=== PATIENT | female | born 1995 | race Caucasian/White ===

== ENCOUNTER 2019-02-24 15:58 | Emergency (ER) | payer MEDICAID, OTHER ==
--- NOTE | 2019-02-24 16:43 | ERPHSYRPT ---
- History of Present Illness Time Seen by Provider: 02/24/19 16:30 Source: patient Exam Limitations: clinical condition Patient Subjective Stated Complaint: staets had an episdode of dizzines while at work. was going up and down on a ladder. Triage Nursing Assessment: alert and oriented with c/o dizziness at work. was going up and down on a ladder. able to ambulate with no problems. neuro intact. Physician History: PATIENT COMPLAINS OF ACUTE OF ONSET OF SORETHROAT, NASAL CONGESTION FAND SLIGHT PRODUCTIVE COUGH X 24 HOURS. HAD TRANSIENT EPISODE OF DIZZINESS WHILE CLIMBING STEPS. DENIES HEADACHE, EARACHE, DIZZINESS, DYSPNEA OR DIFFICULTY BREATHING. Timing/Duration: yesterday Cough Quality/Degree: productive cough, sputum Possible Cause: no prior episodes Modifying Factors: Improves With: activity Associated Symptoms: fever International travel in last 2 weeks: No Allergies/Adverse Reactions: latex Allergy (Mild, Verified 04/20/16 11:11) "latex bandages"- rash/skin tearing or adhesive on bandages Home Medications: Hydrocodone/Acetaminophen [Lortab 5-325 mg Tablet] 1 - 2 tab PO Q4HPRN PRN 04/21 [History] Sulfamethoxazole/Trimethoprim [Bactrim Ds Tablet] 1 tab PO BID 04/21/16 [History ] Hx Influenza Vaccination/Date Given: No Immunizations Up to Date: Yes - Review of Systems Constitutional: Fever, No Chills Eyes: No Symptoms Ears, Nose, & Throat: No Symptoms, Throat Pain Respiratory: Cough, No Dyspnea Cardiac: No Symptoms, No Chest Pain, No Edema, No Syncope Abdominal/Gastrointestinal: No Symptoms, No Abdominal Pain, No Nausea, No Vomiting, No Diarrhea Genitourinary Symptoms: No Symptoms, No Dysuria Musculoskeletal: No Back Pain, No Neck Pain Skin: No Rash Neurological: No Dizziness, No Focal Weakness, No Sensory Changes Psychological: No Symptoms Endocrine: No Symptoms All Other Systems: Reviewed and Negative - Past Medical History Pertinent Past Medical History: Yes Neurological History: No Pertinent History ENT History: No Pertinent History Cardiac History: No Pertinent History Respiratory History: No Pertinent History Endocrine Medical History: No Pertinent History Musculoskeletal History: No Pertinent History GI Medical History: No Pertinent History History: No Pertinent History Psycho-Social History: No Pertinent History Female Reproductive Disorders: No Pertinent History Other Medical History: allergy/recent cold. pilonidal cyst. back and neck pain - Past Surgical History Past Surgical History: No Neuro Surgical History: No Pertinent History Cardiac: No Pertinent History Respiratory: No Pertinent History Gastrointestinal: No Pertinent History Genitourinary: No Pertinent History Musculoskeletal: No Pertinent History Female Surgical History: No Pertinent History - Social History Smoking Status: Never smoker Exposure to second hand smoke: No Drug Use: none Patient Lives Alone: No - Female History Hx Last Menstrual Period: irregular Hx Now: (UNKNOWN) - Nursing Vital Signs Nursing Vital Signs: Initial Vital Signs Temperature 98.7 F 02/24/19 16:21 Pulse Rate 108 H 02/24/19 16:21 Respiratory Rate 18 02/24/19 16:21 Blood Pressure 147/82 02/24/19 16:21 O2 Sat by Pulse Oximetry 95 02/24/19 16:21 Pain Scale Pain Intensity 3 - Physical Exam General Appearance: no apparent distress, alert Eye Exam: PERRL/EOMI, eyes nml inspection Ears, Nose, Throat Exam: normal ENT inspection, TMs normal, pharynx normal, moist mucous membranes, other (NO PERCUSSION TENDERNESS) Neck Exam: normal inspection, non-tender, supple, full range of motion Respiratory Exam: normal breath sounds, lungs clear, No respiratory distress Cardiovascular Exam: regular rate/rhythm, normal heart sounds Gastrointestinal/Abdomen Exam: soft, No tenderness Back Exam: normal inspection, No CVA tenderness, No vertebral tenderness Extremity Exam: normal inspection, normal range of motion Neurologic Exam: alert, oriented x 3, cooperative, normal mood/affect, sensation nml, No motor deficits Skin Exam: normal color, warm, dry, No rash Lymphatic Exam: No adenopathy SpO2 Interpretation: normal SpO2: 95 - Radiology Exams Chest X-ray Interpretation: Interpreted by me (RIGHT LOWER LOBE INFILTRATE) Ordered Tests: Active Orders 24 hr Category Date Time Status CHEST 2 VIEWS (PA AND LAT) Stat Exams 02/24/19 16:36 Taken HCG,QUALITATIVE URINE Stat Lab 02/24/19 16:58 Completed UA W/RFX UR CULTURE Stat Lab 02/24/19 16:55 Completed Medication Summary Discontinued Medications Generic Name Dose Route Start Last Admin Trade Name Freq PRN Reason Stop Dose Admin Amoxicillin/Clavulanate Potassium 875 mg 02/24/19 17:31 Augmentin 875-125 Tablet PO 02/24/19 17:32 STAT ONE Lab/Rad Data: Laboratory Results 02/24/19 02/24/19 02/24/19 Range/Units 16:58 16:55 16:40 Urine Color YELLOW (YELLOW) Urine Appearance CLOUDY (CLEAR) Urine pH 6.0 (5-6) Ur Specific [place] 1.003 (1.005-1.025) Urine Protein NEGATIVE (Negative) Urine Ketones NEGATIVE (NEGATIVE) Urine Blood SMALL (0-5) Luis Alfredo/ul Urine Nitrite NEGATIVE (NEGATIVE) Urine Bilirubin NEGATIVE (NEGATIVE) Urine Urobilinogen NEGATIVE (0-1) mg/dL Ur Leukocyte Esterase NEGATIVE (NEGATIVE) Urine WBC (Auto) 3-5 (0-5) /HPF Urine RBC (Auto) NONE (0-2) /HPF U Epithel Cells (Auto) FEW (FEW) /HPF Urine Bacteria (Auto) RARE (NEGATIVE) /HPF Amorphous Crystals FEW (NEGATIVE) /HPF Urine Culture Reflexed NO (NO) Urine Glucose NEGATIVE (NEGATIVE) mg/dL Urine HCG, Qual NEGATIVE (Negative) Group A Strep Antibody NEGATIVE (NEGATIVE) - Progress Progress Note: 02/24/19 17:52 AUGMENTIN 875 MG ORALLY Counseled pt/family regarding: lab results, diagnosis, need for follow-up, rad results - Departure Departure Disposition: Home Clinical Impression: ACUTE BRONCHITIS Condition: Stable Critical Care Time: No Additional Instructions: ANTIBIOTIC AUGMENTIN 875MG TWICE DAILY FOR 10 DAYS. ANTIVERT 25MG EVERY 8 HOURS NEEDED FOR DIZZINESS. CONSULT YOUR PRIMARY CARE PROVIDER FOR FOLLOWUP IN 1 WEEK. Prescriptions: Meclizine HCl 25 mg [Antivert 25 mg] 25 mg PO Q8H PRN PRN #20 tablet PRN Reason: Dizziness Amox Tr/Potass Clav. 875 mg [Augmentin 875-125 Tablet] 875 mg PO BID #20 tablet
[2019-02-24 16:53] VITALS: PULSE 102
[2019-02-24 17:06] LABS: Amourphous Crystal FEW /HPF (NEGATIVE); Appearance CLOUDY (CLEAR); Bacteria RARE /HPF (NEGATIVE); Bilirubin NEGATIVE (NEGATIVE); Blood SMALL Ery/ul (0-5); Epithelial Cells FEW /HPF (FEW); Glucose NEGATIVE (NEGATIVE); Ketones NEGATIVE (NEGATIVE); Leukocyte Esterase NEGATIVE (NEGATIVE); Nitrite NEGATIVE (NEGATIVE); Protein,Urine Dip NEGATIVE (Negative); Specific Gravity 1.003 (1.005-1.025); Urobilinogen NEGATIVE mg/dL (0-1)
[2019-02-24] MEDS ORDERED: Augmentin 875-125 Tablet PO ONE (17:31)
[2019-02-24 17:56] VITALS: BP 127/99; O2SAT 95
[2019-02-24] MEDS ORDERED: Augmentin 875-125 Tablet ONE (18:01)
--- NOTE | 2019-02-25 08:37 | XRAY ---
Indication: Productive cough. Comparison: None PA/lateral chest obtained. Lateral view limited by respiration/motion artifact. No focal infiltrate, consolidation, or large effusion. Heart is not enlarged. Bony thorax intact. Impression: Nonacute limited chest.
== END 2019-02-24 18:15 | disposition home or self-care (01) ==
LOC: ED 15:58
DX: J20.9 Acute bronchitis, unspecified (principal)
CPT/HCPCS: 71046; 81001; 84703; 87651; 99284; A9270-GY